=== PATIENT | male | born 1980 | race Caucasian/White ===

== ENCOUNTER 2020-08-28 10:38 | Inpatient (IN) | payer OTHER ==
--- NOTE | 2020-08-28 10:36 | BHS.RME ---
Substance Use & Tx History - Substance Use History Heroin Substance amount: 10 bags Frequency of use: Daily Date of Last Use: 08/27/20 (started age 20 overdosed 2 days ago) Klonopin Substance amount: 1 mg 4-5 tabs Frequency of use: Daily Substance route: Oral Date of Last Use: 08/28/20 (started age 37) Alcohol Substance amount: 10 beers -12 beers 24 oz Frequency of use: Daily Substance route: Oral Date of Last Use: 08/28/20 (started age 20) Cocaine-Crack Substance amount: $30 Frequency of use: Daily Substance route: Smoking Date of Last Use: 08/27/20 (started age 38) Nicotine Substance amount: 1 pack Frequency of use: Daily Substance route: Smoking Date of Last Use: 08/28/20 (age 15) Physical/Psych/Mental Status - Behavior General Behavior: Increased activity (restlessness, agitation) Eye Contact: Normal - Cooperativeness Cooperativeness: Cooperative - Thinking Thought Processes: Tight, Logical, Goal Directed - Physical Health Problems Is patient presently having any pain?: No Does patient presently have any injuries (include location): No Does patient currently have a fever: No Is patient : No COWS - Scale Resting Pulse: 0= NH 80 or Below (used large quantity of heroin last night. not yet in withdrawals) Sweatin= No chills or Flushing Restless Observation: 0= Sits Still Pupil Size: 0= Normal to Room Light Bone or Joint Aches: 0= None Runny Nose/ Eye Tearin= None GI Upset > 30mins: 0= None Tremor Observation: 1= Tremor [place], Not Seen Yawning Observation: 0= None Anxiety or Irritability: 1=Feels Anxious/Irritable Goose Flesh Skin: 0=Smooth Skin COWS Score: 2 CIWA Nausea/Vomitin (mitigated by use of a benzo this morning and also drank 2 beers this morning) Muscle Tremors: 2 Anxiety: 2 Agitation: 2 Paroxysmal Sweats: 2 Orientation: 0-Oriented Tacttile Disturbances: 0-None Auditory Disturbances: 0-None Visual Disturbances: 0-None Headache: 0-None Present CIWA-Ar Total Score: 10
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
[2020-08-28 11:53] VITALS: BMI 32.0
[2020-08-28] MEDS ORDERED: ACETAMINOPHEN 325 MG TABLET (FP) PO PRN ×2 (12:06)
[2020-08-28] MEDS ORDERED: IBUPROFEN 400 MG TABLET (FP) PO PRN (12:06)
[2020-08-28] MEDS ORDERED: MAG HYDROX/AL HYDROX/SIMETH 30 ML UNIT-DOSE CUP PO PRN (12:06)
[2020-08-28] MEDS ORDERED: MAGNESIUM CITRATE 300 ML BOTTLE PO PRN (12:06)
[2020-08-28] MEDS ORDERED: ONDANSETRON *ODT* 4 MG TABLET SL PRN (12:06)
[2020-08-28] MEDS ORDERED: NICOTINE POLACRILEX 2 MG GUM BUC PRN (12:06)
[2020-08-28] MEDS ORDERED: LORazepam 1 MG TABLET PO PRN (12:06)
[2020-08-28] MEDS ORDERED: MENTHOL/PHENOL 1 EACH UD MM PRN (12:06)
[2020-08-28] MEDS ORDERED: METHOCARBAMOL 500 MG TABLET PO PRN (12:06)
[2020-08-28] MEDS ORDERED: BISMUTH SUBSALICYLATE 262 MG/15 ML BTL PO PRN (12:06)
[2020-08-28] MEDS ORDERED: MAGNESIUM HYDROX 2400MG/30ML ORAL SUSPENSION 30 ML CUP PO PRN (12:06)
[2020-08-28] MEDS ORDERED: AMOXICILLIN 500 MG CAPSULE (FP) PO SCH (12:15)
[2020-08-28] MEDS ORDERED: NICOTINE 21 MG/24 HOURS TOPICAL PATCH TD SCH (12:15)
[2020-08-28 13:36] VITALS: BP 112/75; PULSE 71; TEMP 97.5
[2020-08-28] MEDS ORDERED: hydrOXYzine PAMOATE 25 MG CAPSULE (FP) PO SCH (14:00)
--- NOTE | 2020-08-28 14:44 | DS ---
[facility] Detox Discharge Summary Admission Date: 08/28/20 Discharge Date: 08/28/20 - History Present History: Cocaine Dependence, Opioid Dependence, Sedative Dependence, MMTP Additional Comments: on arrival on the floor,patient did not want to come in for detox,signed against medical advise,advise to call 911 if not feeling well Pertinent Past History: cellulitis of left arm asthma fx of right foot cane for ambulatory aid - Physical Exam Results Vital Signs: Vital Signs Temperature 97.5 F L 08/28/20 13:35 Pulse Rate 71 08/28/20 13:35 Respiratory Rate 18 08/28/20 13:35 Blood Pressure 112/75 08/28/20 13:35 O2 Sat by Pulse Oximetry (%) 96 08/28/20 13:35 Pertinent Admission Physical Exam Findings: withdrawal sign and symptom Vital Signs Temperature 97.5 F L 08/28/20 13:35 Pulse Rate 71 08/28/20 13:35 Respiratory Rate 18 08/28/20 13:35 Blood Pressure 112/75 08/28/20 13:35 O2 Sat by Pulse Oximetry (%) 96 08/28/20 13:35 - Medication Discharge Medications: Ambulatory Orders Cyclobenzaprine HCl [Flexeril 10 mg] 10 mg PO BID PRN 08/28/20 - Diagnosis (1) Sedative, hypnotic or anxiolytic abuse Status: Acute (2) Asthma Status: Acute Qualifiers: Asthma severity: mild (3) Cellulitis of left arm Status: Acute (4) Cocaine abuse Status: Acute (5) Methadone maintenance therapy patient Status: Acute (6) Nicotine dependence Status: Acute (7) Foot fracture, right Status: Chronic - AMA Did Patient Leave Against Medical Advice: Yes
--- NOTE | 2020-08-28 15:02 | EKG ---
Test Reason : Blood Pressure : / mmHG Vent. Rate : 074 BPM Atrial Rate : 074 BPM P-R Int : 240 ms QRS Dur : 086 ms QT Int : 404 ms P-R-T Axes : 075 058 039 degrees QTc Int : 448 ms SINUS RHYTHM WITH 1ST DEGREE A-V BLOCK OTHERWISE NORMAL ECG NO PREVIOUS ECGS AVAILABLE Confirmed by JOSH MERCADO MD ([id number]) on 08/28/2020 3:01:50 PM Referred By: Confirmed By:JOSH MERCADO MD
[2020-08-28 15:13] LABS: HEMOGLOBIN 13.2 GM/dL (11.7-16.9); MCH 28.4 pg (25.7-33.7); MCHC 33.1 g/dl (32.0-35.9); MEAN CELL VOLUME 85.7 fl (80-96); MEAN PLT VOLUME 10.3 fl (7.5-11.1); PLATELET COUNT 187 K/MM3 (134-434); RBC 4.66 M/mm3 (4.00-5.60); WHITE BLOOD COUNT 5.3 K/mm3 (4.0-10.0)
[2020-08-28 15:23] LABS: ALBUMIN 3.6 g/dl (3.4-5.0); BILIRUBIN,TOTAL 0.7 mg/dL (0.2-1); BLOOD UREA NITROGEN 11.3 mg/dL (7-18); CALCIUM 8.6 mg/dL (8.5-10.1); CREATININE 0.7 mg/dL (0.55-1.3); POTASSIUM 3.9 mmol/L (3.5-5.1); TOT PROT 7.6 g/dl (6.4-8.2)
[2020-08-28] MEDS ORDERED: LORazepam 2 MG TABLET PO SCH (17:00)
--- OUTSIDE RECORDS SUMMARY | 2020-08-28 17:55 | XMS ---
:1980 [facility] Support Name Relationship Address Phone UE Unavailable Unavailable Unavailable TOD ARNDT SISTER [address] [place] [address] Re-disclosure Warning The records that you are about to access may contain information from federally- assisted alcohol or drug abuse programs. If such information is present, then the following federally mandated warning applies: This information has been disclosed to you from records protected by federal confidentiality rules (42 CFR part 2). The federal rules prohibit you from making any further disclosure of this information unless further disclosure is expressly permitted by the written consent of the person to whom it pertains or as otherwise permitted by 42 CFR part 2. A general authorization for the release of medical or other information is NOT sufficient for this purpose. The Federal rules restrict any use of the information to criminally investigate or prosecute any alcohol or drug abuse patient.The records that you are about to access may contain highly sensitive health information, the redisclosure of which is protected by Article 27-F of the [facility] Public Health law. If you continue you may haveaccess to information: Regarding HIV / AIDS; Provided by facilities licensed or operated by the [facility] Office of Mental Health; or Provided by the [facility] Office for People With Developmental Disabilities. If such information is present, then the following [facility] mandated warning applies: This information has been disclosed to you from confidential records which are protected by state law. State law prohibits you from making any further disclosure of this information without the specific written consent of the person to whom it pertains, or as otherwise permitted by law. Any unauthorized further disclosure in violation of state law may result in a fine or long term sentence or both. A general authorization for the release of medical or other information is NOT sufficient authorization for further disclosure. Insurance Providers Payer name Policy type Policy ID Covered Covered alliance party's Policy P dolly / Coverage alliance party ID relationship to Pugh Inf ormation type pugh HECTOR [id number] HEALTH NON CAP
[2020-08-28] MEDS ORDERED: THIAMINE HCL 100 MG TABLET (FP) PO SCH (22:00)
[2020-08-28] MEDS ORDERED: MELATONIN 5 MG TABLETS PO SCH (22:00)
[2020-08-29] MEDS ORDERED: METHADONE HCL 10 MG TABLET PO SCH (06:00)
[2020-08-29] MEDS ORDERED: METHADONE 40 MG, METHADONE 30 MG PO SCH (06:00)
[2020-08-29] MEDS ORDERED: PRENATAL VITAMINS W/ FOLIC ACID TABLET (FP) PO SCH (10:00)
[2020-08-30] MEDS ORDERED: LORazepam 1 MG TABLET PO SCH (05:00)
[2020-08-31] MEDS ORDERED: LORazepam 0.5 MG TABLET PO PRN
[2020-08-31] MEDS ORDERED: LORazepam 0.5 MG TABLET PO SCH (05:00)
[2020-09-01] MEDS ORDERED: LORazepam 0.5 MG TABLET PO ONE (05:00)
== END 2020-08-28 14:20 | disposition left against medical advice (07) | DRG 770 ==
LOC: YASAS 10:38 → Y3N 11:59
PROVIDERS: ADMIT Allergy & Immunology; ATTEND Allergy & Immunology
PROC: HZ2ZZZZ Detoxification Services for Substance Abuse Treatment (ICD-10-PCS; principal; 2020-08-28)
DX: F11.20 Opioid dependence, uncomplicated (principal); F13.20 Sedative, hypnotic or anxiolytic dependence, uncomplicated; F14.20 Cocaine dependence, uncomplicated; F32.9 Major depressive disorder, single episode, unspecified; F41.9 Anxiety disorder, unspecified; J45.20 Mild intermittent asthma, uncomplicated; M54.5 Low back pain; G89.29 Other chronic pain; H02.401 Unspecified ptosis of right eyelid; R60.0 Localized edema; Z87.81 Personal history of (healed) traumatic fracture; Z99.89 Dependence on other enabling machines and devices; F17.210 Nicotine dependence, cigarettes, uncomplicated
CPT/HCPCS: 36415; 80053; 85027; 86780; 87389; 93005; 93010; U0003